=== PATIENT | male | born 1990 | race Caucasian/White ===

== ENCOUNTER 2018-04-05 12:48 | Emergency (ER) | payer OTHER ==
[~2018-04-05] VITALS: Ht 170.2 cm; Wt 63.5 kg
[2018-04-05] MEDS ORDERED: NORCO 5-325 TA1 EAC1 PO (14:06)
[2018-04-05] MEDS ORDERED: ERYTHROMYCIN E3.5 G2 OPHTHALMIC (14:07)
[2018-04-05 14:14] VITALS: BP 115/75
== END 2018-04-05 14:16 | disposition home or self-care (01) ==
LOC: M.ERS 12:48
DX: H57.12 Ocular pain, left eye (principal); F17.210 Nicotine dependence, cigarettes, uncomplicated